=== PATIENT | female | born 1975 | race American Indian/Alaskan Native ===

== ENCOUNTER 2017-02-08 19:52 | Emergency (ER) | payer OTHER ==
[2017-02-08 19:52] VITALS: BMI 25.1
[2017-02-08 20:12] VITALS: TEMP 98; O2SAT 100
--- NOTE | 2017-02-08 20:24 | ED PDOC ---
Arrival/HPI - General Chief Complaint: Abnormal Skin Integrity Time Seen by Provider: 02/08/17 20:12 Historian: Patient - History of Present Illness Narrative History of Present Illness (Text): 02/08/17 20:17 A 41 year old female, with no significant past medical history, presents to the emergency department complaining of a small abscess on the right perianal area with associated pain. The patient states that she had her daughter check it today and there was no drainage. The patient denies fevers, chills, headache, dizziness, chest pain, shortness of breath, dyspnea on exertion, cough, abdominal pain, nausea, vomiting, diarrhea, back pain, neck pain, urinary/bowel changes, or any other complaint. PMD: None Time/Duration: Other (Today) Symptom Onset: Gradual Symptom Course: Unchanged Activities at Onset: Rest, Light Context: Home Past Medical History - Provider Review Nursing Documentation Reviewed: Yes - Past History Past History: No Previous - Infectious Disease Hx of Infectious Diseases: None - Tetanus Immunization Tetanus Immunization: Unknown, >10 years Ago - Cardiac Hx Cardiac Disorders: No - Pulmonary Hx Respiratory Disorders: No - Neurological Hx Neurological Disorder: No - HEENT Hx HEENT Disorder: No - Renal Hx Renal Disorder: No - Endocrine/Metabolic Hx Endocrine Disorders: No - Hematological/Oncological Hx Blood Disorders: No - Integumentary Hx Dermatological Disorder: No - Musculoskeletal/Rheumatological Hx Musculoskeletal Disorders: No - Gastrointestinal Hx Gastrointestinal Disorders: No - Genitourinary/Gynecological Hx Genitourinary Disorders: Yes Other/Comment: Bilateral benign breast cyst -- cyst removal - Psychiatric Hx Psychophysiologic Disorder: No Hx Substance Use: No - Surgical History Other/Comment: kelsie breast cyst removal - Anesthesia Hx Anesthesia: Yes Hx Anesthesia Reactions: No Hx Malignant Hyperthermia: No Family/Social History - Physician Review Nursing Documentation Reviewed: Yes Family/Social History: No Known Family HX Smoking Status: Heavy Smoker > 10 Cigarettes Daily Hx Alcohol Use: Yes Hx Substance Use: No Allergies/Home Meds Allergies/Adverse Reactions: Allergies No Known Allergies Allergy (Verified 12/10/16 17:53) Review of Systems - Physician Review All systems were reviewed & negative as marked: Yes - Review of Systems Gastrointestinal: Other (right perianal abscess.). absent: Abdominal Pain, Stool Changes, Diarrhea, Nausea, Vomiting Genitourinary Female: absent: Urine Output Changes Physical Exam Vital Signs Reviewed: Yes Vital Signs Temp Pulse Resp BP Pulse Ox 02/08/17 20:07 98.0 F 72 18 142/94 H 100 Temperature: Afebrile Blood Pressure: Hypertensive Pulse: Regular Respiratory Rate: Normal Appearance: Positive for: Well-Appearing, Non-Toxic, Comfortable Pain Distress: None Mental Status: Positive for: Alert and Oriented X 3 - Systems Exam Head: Present: Atraumatic, Normocephalic Pupils: Present: PERRL Extroacular Muscles: Present: EOMI Conjunctiva: Present: Normal Mouth: Present: Moist Mucous Membranes Neck: Present: Normal Range of Motion Respiratory/Chest: Present: Clear to Auscultation, Good Air Exchange. No: Respiratory Distress, Accessory Muscle Use Cardiovascular: Present: Regular Rate and Rhythm, Normal S1, S2. No: Murmurs Abdomen: Present: Normal Bowel Sounds. No: Tenderness, Distention, Peritoneal Signs Rectal: Present: Other (Small 1 cm fluctuant right perianal abscess. No drainage. ) Back: Present: Normal Inspection Upper Extremity: Present: Normal Inspection. No: Cyanosis, Edema Lower Extremity: Present: Normal Inspection. No: Edema Neurological: Present: GCS=15, CN II-XII Intact, Speech Normal Skin: Present: Warm, Dry, Normal Color. No: Rashes Psychiatric: Present: Alert, Oriented x 3, Normal Insight, Normal Concentration Medical Decision Making ED Course and Treatment: 02/08/17 20:27 Impression: A 41 year old female presents to the emergency department complaining of a right perianal abscess. Plan: -- Reassess and disposition Prior Visits: Notes and results from previous visits were reviewed. Patient was last seen in the emergency department on 12/19/16. The patient was seen in the emergency department for a suture removal. The patient was discharged home. Progress Notes: - Medication Orders Current Medication Orders: Discontinued Medications Lidocaine/Epinephrine (Xylocaine 1% W Epi 1:100,000 Inj) 2 ml IJ STAT STA Stop: 02/08/17 20:39 - Scribe Statement The provider has reviewed the documentation as recorded by the Vikkiibdallin Blanchard Provider Scribe Attestation: All medical record entries made by the Scribe were at my direction and personally dictated by me. I have reviewed the chart and agree that the record accurately reflects my personal performance of the history, physical exam, medical decision making, and the department course for this patient. I have also personally directed, reviewed, and agree with the discharge instructions and disposition. Disposition/Present on Arrival - Present on Arrival Any Indicators Present on Arrival: No History of DVT/PE: No History of Uncontrolled Diabetes: No Urinary Catheter: No History of Decub. Ulcer: No History Surgical Site Infection Following: None - Disposition Have Diagnosis and Disposition been Completed?: Yes Diagnosis: Perianal abscess Disposition: HOME/ ROUTINE Disposition Time: 21:10 Patient Plan: Discharge Condition: STABLE Additional Instructions: Remove packing in 2 days and begin warm baths/warm soaks. Prescriptions: oxyCODONE/Acetaminophen [Percocet 5/325 mg Tab] 1 ea PO TID PRN #6 tab PRN Reason: Pain, Moderate (4-7) Forms: [facility] (Finnish)
[2017-02-08] MEDS ORDERED: Lidocaine 1% w Epi 1:100,000 Inj IJ STA (20:38)
[2017-02-08 23:00] VITALS: BP 135/87; PULSE 81; RESP 16
== END 2017-02-08 21:20 | disposition home or self-care (01) ==
LOC: ED 19:52
DX: K61.0 Anal abscess (principal)

== ENCOUNTER 2018-01-22 21:03 | Emergency (ER) | payer OTHER ==
[2018-01-22 21:03] VITALS: BMI 25.1
[2018-01-22 22:09] VITALS: BP 130/75; PULSE 80; RESP 18; TEMP 98.1; O2SAT 100
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
== END 2018-01-22 22:45 | disposition left against medical advice (07) ==
LOC: ED 21:03
DX: M54.9 Dorsalgia, unspecified (principal)